=== PATIENT | female | born 1950 | race Caucasian/White ===

== ENCOUNTER 2016-09-26 19:29 | Inpatient (IN) | payer MEDICARE, BC ==
--- NOTE | 2016-09-26 19:41 | ER Document Report ---
ED Medical Screen (RME) - General Stated Complaint: BOIL ON RIGHT ARM Mode of Arrival: Wheelchair Information source: Patient Notes: pt presents to the ED with abscess on right inner thigh since Tuesday with low grade fever. Denies hx of MRSA. Reports pain. I have greeted and performed a rapid initial assessment of this patient. A comprehensive ED assessment and evaluation of the patient, analysis of test results and completion of the medical decision making process will be conducted by additional ED providers. - Related Data Allergies/Adverse Reactions: No Known Allergies Allergy (Unverified 05/03/12 10:05) Past Medical History - Past Medical History Cardiac Medical History: Reports: Hx Hypercholesterolemia, Hx Hypertension Pulmonary Medical History: Reports: Hx Pneumonia Endocrine Medical History: Reports: Hx Diabetes Mellitus Type 2 Past Surgical History: Reports: Hx Tonsillectomy - T&A - Immunizations Hx Diphtheria, Pertussis, Tetanus Vaccination: No Physical Exam - Vital signs Vitals: Temp Pulse Resp BP Pulse Ox 98.4 F 77 16 138/61 H 94 09/26/16 19:36 09/26/16 19:36 09/26/16 19:36 09/26/16 19:36 09/26/16 19:36 Course - Vital Signs Vital signs: Temp Pulse Resp BP Pulse Ox 98.4 F 77 16 138/61 H 94 09/26/16 19:36 09/26/16 19:36 09/26/16 19:36 09/26/16 19:36 09/26/16 19:36
[2016-09-26] MEDS ORDERED: LIDOCAINE 1% INJ-PF (10 MG/ML) 30 ML SDV ONE (20:56)
[2016-09-26] MEDS ORDERED: HYDROMORPHONE HCL INJ/PF 2 MG/ML AMPULE IM ONE (21:01)
[2016-09-26] MEDS ORDERED: ONDANSETRON 4 MG TAB.RAPDIS PO ONE (21:01)
[2016-09-26] MEDS ORDERED: PIPERACILLIN/TAZOBACTAM 4.5 GM VIAL IV ONE (21:09)
[2016-09-26] MEDS ORDERED: LIDOCAINE 1% INJ-PF (10 MG/ML) 30 ML SDV INJ ONE (21:11)
[2016-09-26] MEDS ORDERED: DIPH/PERTUSS(ACELL)/TETANUS VAC/PF 0.5 ML SYR (>=10YO) IM ONE (21:12)
--- NOTE | 2016-09-26 21:13 | ER Document Report ---
ED Skin Rash/Insect Bite/Abscs - General Chief Complaint: Abscess Stated Complaint: right leg pain Time seen by provider: 20:50 Mode of Arrival: Wheelchair Notes: Patient is a 65-year-old female that comes emergency department for chief complaint of a red and painful area on her right thigh that started out as a small red painful area but has grown to a large size over the past 5 days approximately. Patient states that for the past couple of days she has felt chills. Past medical history of morbid obesity, type II diabetes on oral medications, hypertension. Tetanus is not up-to-date within 5 years. TRAVEL OUTSIDE OF THE [place] IN LAST 30 DAYS: No - Related Data Allergies/Adverse Reactions: No Known Allergies Allergy (Unverified 05/03/12 10:05) Home Medications: Current Home Medications Albuterol Sulfate [Proair Respiclick] 2 puff IH ASDIR PRN 09/27/16 [History] Atenolol [Atenolol] 50 mg PO DAILY 09/27/16 [History] Atorvastatin Calcium 10 mg PO ASDIR PRN 09/27/16 [History] Bupropion HCl [Wellbutrin Xl 300mg 24hr Tablet] 1 tab PO DAILY 09/27/16 [History ] Citalopram Hydrobromide [Citalopram HBr] 20 mg PO DAILY 09/27/16 [History] Fenofibrate Nanocrystallized [Fenofibrate] 145 mg PO DAILY 09/27/16 [History] Furosemide [Furosemide] 1.5 tab PO QAM 09/27/16 [History] Lubiprostone [Amitiza 24 Mcg Capsule] 24 mcg PO BID 09/27/16 [History] Ramipril [Ramipril] 2 cap PO DAILY 09/27/16 [History] Sitagliptin Phosphate [Januvia] 50 mg PO DAILY 09/27/16 [History] Topiramate [Topiramate] 200 mg PO ASDIR PRN 09/27/16 [History] Past Medical History - General Information source: Patient - Social History Smoking Status: Current Every Day Smoker Chew tobacco use (# tins/day): No Drug Abuse: None Lives with: Family Family History: Reviewed & Not Pertinent Patient has suicidal ideation: No Patient has homicidal ideation: No - Past Medical History Cardiac Medical History: Reports: Hx Hypercholesterolemia, Hx Hypertension Pulmonary Medical History: Reports: Hx Pneumonia Endocrine Medical History: Reports: Hx Diabetes Mellitus Type 2 Renal/ Medical History: Denies: Hx Peritoneal Dialysis Past Surgical History: Reports: Hx Tonsillectomy - T&A - Immunizations Hx Diphtheria, Pertussis, Tetanus Vaccination: No Hx Pneumococcal Vaccination: 07/18/08 Review of Systems - Review of Systems Constitutional: No symptoms reported EENT: No symptoms reported Cardiovascular: No symptoms reported Respiratory: No symptoms reported Gastrointestinal: No symptoms reported Genitourinary: No symptoms reported Female Genitourinary: No symptoms reported Musculoskeletal: See HPI Skin: See HPI Hematologic/Lymphatic: No symptoms reported Neurological/Psychological: No symptoms reported Physical Exam - Vital signs Vitals: Temp Pulse Resp BP Pulse Ox 98.4 F 77 16 138/61 H 94 09/26/16 19:36 09/26/16 19:36 09/26/16 19:36 09/26/16 19:36 09/26/16 19:36 Interpretation: Normal - General General appearance: Appears well, Alert In distress: None - Patient is morbidly obese with very large lower extremities and thighs but she does not appear to be in any distress - HEENT Head: Normocephalic, Atraumatic Eyes: Normal Conjunctiva: Normal Extraocular movements intact: Yes Eyelashes: Normal Pupils: PERRL Sinus: Normal Nasal: Normal Mouth/Lips: Normal Mucous membranes: Normal Pharynx: Normal Neck: Normal - Respiratory Respiratory status: No respiratory distress Chest status: Nontender Breath sounds: Normal. No: Decreased air movement, Wheezing Chest palpation: Normal - Cardiovascular Rhythm: Regular. No: Tachycardia Heart sounds: Normal auscultation, S1 appreciated, S2 appreciated Murmur: No - Abdominal Inspection: Normal Distension: No distension Bowel sounds: Normal Tenderness: Nontender Organomegaly: No organomegaly - Back Back: Normal, Nontender - Extremities General upper extremity: Normal inspection, Nontender, Normal color, Normal ROM , Normal temperature General lower extremity: Other - Large 4 x 6 cm area of approximately that appears to be necrotic tissue over the proximal right medial thigh, there is surrounding erythema. - Neurological Neuro grossly intact: Yes Cognition: Normal Orientation: AAOx4 Jose Coma Scale Eye Opening: Spontaneous [place] Coma Scale Verbal: Oriented Jose Coma Scale Motor: Obeys Commands Jose Coma Scale Total: 15 Speech: Normal Motor strength normal: LUE, RUE, LLE, RLE Sensory: Normal - Psychological Associated symptoms: Normal affect, Normal mood - Skin Skin Temperature: Warm Skin Moisture: Dry Skin Color: Normal Course - Re-evaluation Re-evalutation: Necrotic tissue is surrounding cellulitis noted in a large area on the right mid thigh. There evaluated with a bedside ultrasound, no drainable abscess noted, just the superficial necrotic tissue with surrounding cellulitis. Spoke with Dr. Chaudhari, he evaluated the patient at bedside, he immediately performed a procedure where he made a widespread removal of the necrotic tissue and a large oval-shape, I irrigated the area with saline and placed wet-to-dry dressing as recommended by the surgeon. Labs obtained, wound culture sent, giving IV Zosyn, leukocytosis at 14.5 with elevation of neutrophils noted. Discussed with Dr. Horowitz, internal medicine, patient will be admitted to the hospital. - Vital Signs Vital signs: Temp Pulse Resp BP Pulse Ox 98.3 F 57 L 18 143/74 H 98 09/27/16 03:23 09/27/16 03:23 09/27/16 03:23 09/27/16 03:23 09/27/16 03:23 - Laboratory Result Diagrams: 09/26/16 21:45 09/26/16 22:40 Laboratory results interpreted by me: 09/26/16 09/26/16 21:45 22:40 WBC 14.2 H Hgb 10.7 L Hct 33.4 L RDW 14.2 H Seg Neutrophils % 83.5 H Lymphocytes % 7.6 L Absolute Neutrophils 11.8 H BUN 36 H Creatinine 1.45 H Est GFR ( Amer) 44 L Est GFR (Non-Af Amer) 36 L Discharge - Discharge Clinical Impression: Cellulitis of right leg Disposition: ADMITTED INPATIENT Admitting Provider: Hospitalist Unit Admitted: Telemetry
[2016-09-26 22:13] LABS: ABSOLUTE BASOPHILS # (AUTO) 0.1 10^3/uL (0.0-0.2); ABSOLUTE EOSINOPHILS # (AUTO) 0.2 10^3/uL (0.0-0.6); ABSOLUTE LYMPHOCYTES (AUTO) 1.1 10^3/uL (0.5-4.7); ABSOLUTE MONOCYTES (AUTO) 0.9 10^3/uL (0.1-1.4); ABSOLUTE NEUT (AUTO) 11.8 10^3/uL (1.7-8.2); BASOPHILS % (AUTO) 0.8 % (0-2); EOSINOPHILS % (AUTO) 1.7 % (0-6); HEMATOCRIT 33.4 % (36.0-47.0); HEMOGLOBIN 10.7 g/dL (12.0-15.5); HGB HCT DIFFERENCE -1.3; LYMPHOCYTES % (AUTO) 7.6 % (13-45); MEAN CORPUSCULAR HGB CONC 32.1 g/dL (32.0-36.0); MEAN CORPUSCULAR VOLUME 84 fl (80-97); MONOCYTES % (AUTO) 6.4 % (3-13); RED BLOOD COUNT 3.97 10^6/uL (3.72-5.28); RED CELL DISTRIBUTION WIDTH 14.2 % (11.5-14.0); SEGMENTED NEUTROPHILS % (AUTO) 83.5 % (42-78); WHITE BLOOD COUNT 14.2 10^3/uL (4.0-10.5)
[2016-09-26 23:13] LABS: ALANINE AMINOTRANSFERASE 32 U/L (9-52); ALBUMIN 3.7 g/dL (3.5-5.0); ALKALINE PHOSPHATASE 64 U/L (38-126); ANION GAP 14 (5-19); ASPARTATE AMINO TRANSFERASE 19 U/L (14-36); BILIRUBIN,TOTAL 0.5 mg/dL (0.2-1.3); BLOOD UREA NITROGEN 36 mg/dL (7-20); CARBON DIOXIDE 25 mmol/L (22-30); CHLORIDE 105 mmol/L (98-107); CREATININE RESULT 1.45 mg/dL (0.52-1.25); GLUCOSE 101 mg/dL (75-110); POTASSIUM 4.1 mmol/L (3.6-5.0); SODIUM 143.6 mmol/L (137-145); TOTAL PROTEIN 6.8 g/dL (6.3-8.2)
[2016-09-27] MEDS ORDERED: INSULIN LISPRO 100 UNIT/ML 3 ML VIAL SUBCUT PRN (01:27)
[2016-09-27] MEDS ORDERED: DEXTROSE 50%-WATER 25 GM/50 ML DISP.SYRIN IV PRN ×2 (01:27)
[2016-09-27] MEDS ORDERED: DEXTROSE 40% GEL 15 GM TUBE PO PRN ×2 (01:27)
[2016-09-27] MEDS ORDERED: GLUCAGON,HUMAN RECOMB 1 MG INJ IM PRN (01:27)
[2016-09-27] MEDS ORDERED: ACETAMINOPHEN 325 MG TABLET PO PRN (01:41)
[2016-09-27] MEDS ORDERED: OXYCODONE HCL IR 5 MG TABLET PO PRN (01:52)
[2016-09-27] MEDS ORDERED: VANCOMYCIN HCL 0 MG in DEXTROSE 5%-WATER 250 ML IV NR (02:00)
[2016-09-27] MEDS ORDERED: PHARMACY COMMUNICATION ORDER MC SCH (02:00)
[2016-09-27] MEDS ORDERED: NICOTINE 7 MG/24 HR PATCH.TD24 TD PRN (02:13)
--- NOTE | 2016-09-27 02:15 | PDOC H&P ---
History of Present Illness Admission Date/PCP: 09/27/16 00:47 LUCERO BURT MD Patient complains of: rt thigh infection History of Present Illness: JUSTINE DU is a 65 year old morbidly obese female with underlying type II diabetes mellitus, anemia, chronic kidney disease, chronic nicotine dependency, arthritis, depression, hypertension, and hyperlipidemia, who presents to the emergency room for evaluation of a painful inflamed area on her upper medial right thigh present for approximately 5 days. Combination throbbing and sharp pain which worsens with ambulation or contact with the area. Started out as a red bump. 2 day history of shaking chills. No prior such episodes. No known trauma to the site. No history of MRSA infection. Has undergone incision and drainage by the surgeon in the emergency room. Patient has been discussed with emergency room physician who evaluated the patient. . Laboratory results are listed in [facility] and are reviewed. Social history/personal habits: . Lives alone. Close family follow-up. Unemployed. Currently uses a vaping device. No alcohol or illicit drug use. Allergies/adverse reactions NKDA. Home medications are reviewed from a hand written list provided by [facility], who is present at patient's side with her approval and are to be reconciled by nursing staff in [facility]. Home medications initially autopopulated into [facility] may not accurately reflect patient's true medications, dosages, and/or frequencies. REVIEW OF SYSTEMS: Constitutional: See history and present illness. Eyes: Wears glasses. ENT: No swallowing problems or complaints. No hearing problems or complaints. Pulmonary: No current complaints. Cardiovascular: No current complaints, including chest pain. Gastrointestinal: No current complaints, including nausea or vomiting. Skin: See history and present illness. Hematologic: Easy bruising. Neurologic: No current complaints, including numbness or tingling. Musculoskeletal: Joint pain from arthritis. Psychiatric: depression; denies suicidal or homicidal ideation. Endocrine: No current complaints, including polyuria. Genitourinary: No current complaints, including dysuria. PHYSICAL EXAMINATION: 5 feet 6 inches tall. 151.95 kg. BMI 54.1 kg/m.Temperature 98.4. Pulse 77 and regular. Blood pressure 138/61. Respirations are 16 and unlabored. 94% saturation on room air. Morbidly obese otherwise well-developed female appearing approximately her stated age. Pleasant awake alert and cooperative. No obvious distress other than perhaps mildly anxious. Female emergency room nurse Augusta is present. Daughter is present; patient approves. Skin is warm and dry. No grossly obvious evidence of rash in areas of skin examined. No subcutaneous nodules palpated. Clean dry and intact gauze dressing is present on her upper right medial thigh, with some evidence of inflammation in the skin surrounding the dressing. Dressing is left in place. ENT: Hearing grossly normal to normal conversation. Tongue midline on protrusion pink and slightly moist. Eyes: No scleral icterus. Pupils equal and reactive to light at 4 mm. [place] conjunctivae. Neck is supple and nontender to gentle active range of motion and palpation. Midline trachea. No palpable thyroid nodule mass enlargement or tenderness. Lymphatic: No palpable cervical or clavicular nodes. Neck and lymphatic exams limited by patient body habitus. Psychiatric: Reasonable insight into acute and chronic medical issues. Oriented to time location and why here. Lungs: Auscultation reveals clear and equal breath sounds bilaterally. No use of accessory respiratory muscles. Cardiovascular: Heart slightly irregular rate and rhythm, without gallop murmur or rub. No carotid or abdominal aortic bruits. No ankle or pedal edema. Faintly palpable dorsalis pedis pulses. Patient states Dr. Burt is aware of her slightly irregular heartbeat. No history of atrial fibrillation or flutter. Abdomen: soft, obese, nontender with positive bowel sounds. Unable to adequately evaluate abdomen for masses or organomegaly due to body habitus. Extremities: Feet are warm and dry. No calf tenderness to compression. No grossly obvious visual evidence of calf swelling. Gentle manipulation of lower extremities fails to reveal any obvious evidence of injury or instability to knees hips or ankles. Neurologic: Moves upper extremities grossly normally. Patellar reflexes absent. Absent Babinski. Light touch decreased at feet, a chronic finding, according to patient, without recent change.. Dorsiflexion and plantarflexion of feet 5 / 5 and symmetric. Past Medical History Cardiac Medical History: Reports: Hyperlipidema, Hypertension Denies: Congestive Heart Failure, DVT, Myocardial Infarction, Pulmonary Embolism Pulmonary Medical History: Reports: Pneumonia Denies: Asthma, Chronic Obstructive Pulmonary Disease (COPD) EENT Medical History: Reports: Eyes - Glasses Denies: Ears, Throat Neurological Medical History: Denies: Hemorrhagic CVA, Ischemic CVA, Seizures Endocrine Medical History: Reports: Diabetes Mellitus Type 2 Denies: Diabetes Mellitus Type 1, Hyperthyroidism, Hypothyroidism Renal/ Medical History: Reports: Chronic Kidney Disease GI Medical History: Denies: Cirrhosis, Gastroesophageal Reflux Disease, Hepatitis, Peptic Ulcer Disease Skin Medical History: Reports: None Psychiatric Medical History: Reports: Depression, Other - Nicotine dependency Denies: Alcohol Dependency, Substance Abuse Hematology: Reports: Anemia Infectious Medical History: Denies: Clostridium Difficile, Hepatitis B, Hepatitis C, Methicillin- Resistant Staph Aureus Past Surgical History Past Surgical History: Reports: Tonsillectomy - T&A Social History Information Source: Patient, Emergency Med Personnel, [facility] Lives with: Alone Smoking Status: Current Every Day Smoker Frequency of Alcohol Use: None Drugs: None - Advance Directive Resuscitation Status: Full Code Surrogate healthcare decision maker:: Children Family History Parental Family History Reviewed: Yes Children Family History Reviewed: Yes Sibling(s) Family History Reviewed.: Yes Medication/Allergy Home Medications: Aspirin [Aspirin 81 mg Chewable Tablet] 81 mg PO DAILY 09/27/16 Atenolol [Tenormin 50 mg Tablet] 50 mg PO DAILY 09/27/16 Atorvastatin Calcium [Lipitor 10 mg Tablet] 10 mg PO DAILY 09/27/16 Bupropion HCl [Wellbutrin Xl 300mg 24hr Tablet] 1 tab PO DAILY 09/27/16 Calcium Carbonate/Vitamin D3 [Calcium 600-Vit D3 800 Tablet] 1 each PO DAILY Citalopram Hydrobromide [Celexa 20 mg Tablet] 10 mg PO DAILY 09/27/16 Fenofibrate Nanocrystallized [Tricor 145 mg Tablet] 145 mg PO DAILY 09/27/16 Furosemide [Lasix] 30 mg PO QAM 09/27/16 Glucosamine Sulfate 2Kcl [Glucosamine Sulfate] 2,000 mg PO BID 09/27/16 Krill/Om-3/Dha/Epa/Phospho/Ast [Krill Oil 500 mg Softgel] 1 each PO BID Lubiprostone [Amitiza 24 Mcg Capsule] 24 mcg PO BID 09/27/16 Multivitamin [Tab-A-Del] 1 each PO DAILY 09/27/16 Ramipril [Altace 10 mg Capsule] 20 mg PO DAILY 09/27/16 Sitagliptin Phosphate [Januvia 50 mg Tablet] 50 mg PO DAILY 09/27/16 Topiramate [Topamax] 200 mg PO QHS 09/27/16 Vit A/C/E AC/Znox/Cupric Oxide [Eye Vitamin-Minerals Tablet] 1 each PO BID 09/27 Clindamycin HCl [Cleocin HCl] 300 mg PO QID #40 capsule 10/02/16 RX: Cefuroxime Axetil [Ceftin 250 mg Tablet] 250 mg PO Q12 #10 tablet 10/02/16 Allergies/Adverse Reactions: No Known Allergies Allergy (Unverified 05/03/12 10:05) Physical Exam Vital Signs: Temp Pulse Resp BP Pulse Ox 98.4 F 77 16 138/61 H 94 09/26/16 19:36 09/26/16 19:36 09/26/16 19:36 09/26/16 19:36 09/26/16 19:36 Assessment & Plan - Diagnosis (1) Abscess of right thigh Is this a current diagnosis for this admission?: YesPlan: Surgery consult for wound follow-up. Intravenous vancomycin, along with Zosyn. Contact precautions. MRSA screen. I have strongly encouraged patient not to get out of bed without notifying staff , to avoid a fall with injury. Knee high SCDs for DVT prophylaxis, along with subcutaneous heparin. Impression and plans were discussed with patient, and daughter, both of whom concur. Time spent in evaluation and management of patient: 64 minutes. (2) Status post incision and drainage Is this a current diagnosis for this admission?: Yes (3) Anemia Qualifiers: Anemia type: unspecified type Qualified Code(s): D64.9 - Anemia, unspecified Is this a current diagnosis for this admission?: YesPlan: Follow-up CBC with differential. No need for transfusion at present time. (4) CKD (chronic kidney disease), stage III Is this a current diagnosis for this admission?: Yes (5) Diabetes mellitus type 2 in obese Is this a current diagnosis for this admission?: YesPlan: Diabetic cardiac prerenal diet. Accu-Cheks with appropriate sliding scale coverage.Resume home medications as appropriate once these have been reviewed. (6) HLD (hyperlipidemia) Qualifiers: Hyperlipidemia type: unspecified Qualified Code(s): E78.5 - Hyperlipidemia, unspecified Is this a current diagnosis for this admission?: YesPlan: Resume home medications as appropriate once these have been reviewed. (7) HTN (hypertension) Qualifiers: Hypertension type: essential hypertension Qualified Code(s): I10 - Essential (primary) hypertension Is this a current diagnosis for this admission?: YesPlan: Resume home medications as appropriate once these have been reviewed. (8) Nicotine dependence Qualifiers: Nicotine product type: other Is this a current diagnosis for this admission?: YesPlan: When necessary nicotine patch. - Inpatient Certification Based on my medical assessment, after consideration of the patient's comorbidities, presenting symptoms, or acuity I expect that the services needed warrant INPATIENT care.: Yes I certify that my determination is in accordance with my understanding of Medicare's requirements for reasonable and necessary INPATIENT services [42 CFR 412.3e].: Yes Medical Necessity: Need Close Monitoring Due to Risk of Patient Decompensation, Need for IV Antibiotics, Risk of Complication if Not Cared For in Hospital Post Hospital Care: D/C or Transfer Summary
[2016-09-27 03:35] LABS: APPEARANCE,URINE CLOUDY; BILIRUBIN,URINE NEGATIVE (NEGATIVE); GLUCOSE, URINE NEGATIVE (NEGATIVE); KETONES,URINE NEGATIVE (NEGATIVE); LEUKOCYTE ESTERASE,URINE LARGE (NEGATIVE); NITRITE,URINE POSITIVE (NEGATIVE); PROTEIN,URINE NEGATIVE (NEGATIVE); URINE SPECIFIC GRAVITY 1.014; UROBILINOGEN,URINE NEGATIVE mg/dL (<2.0)
[2016-09-27] MEDS ORDERED: PIPERACILLIN/TAZOBACTAM 4.5 GM VIAL IV PRN (03:44)
--- NOTE | 2016-09-27 04:43 | OPERATIVE REPORT E ---
Operative Report NAME: JUSTINE DU : 1950 AGE: 65Y DATE OF SURGERY: ROOM: 425 PREOPERATIVE DIAGNOSIS: The patient consultation from the ER physician for evaluation and management of right thigh abscess and necrotic soft tissue infection. The patient is a morbidly obese diabetic patient with hypertension, hypercholesterolemia presented to emergency room with history of pain in the right thigh area increasing severity for the past five days. The patient does not recollect any history of spider bite or insect bite and came to emergency room. Upon evaluation, she has large erythema along with necrotic soft tissue infection and needed a drain in the buttock. OPERATION: Incision and drainage of the abscess of the right upper thigh along with excisional debridement of the soft tissue narcotic infection up to the deep fascial level. SURGEON: ELISA AGUIRRE M.D. PROCEDURE: Procedure was done on the bedside with 1% lidocaine. After explaining to the patient of the procedure details, the patient was placed on the supine position. The right thigh area cleaned and draped as sterile field. 1% lidocaine injected for analgesia. There was about 4 cm necrotic soft tissue in the right thigh medial aspect. About 3 cm incision was made. All the necrotic soft tissue debrided up to the facial level. Underlying thicker pus was drained out, sent for cultures. All the necrotic soft tissues were debrided up to the healthy margins. Wound was irrigated. Dressings were applied. The patient tolerated the procedure very well. DICTATING PHYSICIAN: ELISA AGUIRRE M.D. [id number] PHY#: [id number] ID: [id number] JOB#: [id number] ACCT: [id number] cc:ELISA AGUIRRE M.D. > [facility]ITALRich
[2016-09-27] MEDS ORDERED: INFLUENZA ADLT QUAD (36MOS+) 2016-17 VAC 0.5 ML SYR IM PRN (04:50)
[2016-09-27] MEDS ORDERED: VANCOMYCIN HCL INJ 1000 MG VIAL IV PRN (05:00)
[2016-09-27] MEDS ORDERED: VANCOMYCIN HCL 2,000 MG in DEXTROSE 5%-WATER 500 ML IV ONE (05:00)
[2016-09-27] MEDS ORDERED: VANCOMYCIN HCL INJ 1000 MG VIAL ONE (05:37)
[2016-09-27] MEDS ORDERED: HEPARIN SOD (PORCINE) 5,000 UNIT/ML 1 ML SYRINGE SUBCUT SCH (06:00)
[2016-09-27] MEDS ORDERED: PIPERACILLIN SODIUM/TAZOBACTAM 4.5 GM in NORMAL SALINE 100 ML IV SCH (06:00)
[2016-09-27 07:40] LABS: ABSOLUTE BASOPHILS # (AUTO) 0.1 10^3/uL (0.0-0.2); ABSOLUTE EOSINOPHILS # (AUTO) 0.2 10^3/uL (0.0-0.6); ABSOLUTE MONOCYTES (AUTO) 0.9 10^3/uL (0.1-1.4); BASOPHILS % (AUTO) 0.8 % (0-2); EOSINOPHILS % (AUTO) 1.8 % (0-6); HEMOGLOBIN 10.4 g/dL (12.0-15.5); HGB HCT DIFFERENCE -0.8; LYMPHOCYTES % (AUTO) 7.2 % (13-45); MEAN CORPUSCULAR HEMOGLOBIN 27.3 pg (27.0-33.4); MEAN CORPUSCULAR HGB CONC 32.4 g/dL (32.0-36.0); MEAN CORPUSCULAR VOLUME 85 fl (80-97); MONOCYTES % (AUTO) 7.2 % (3-13); RED BLOOD COUNT 3.79 10^6/uL (3.72-5.28); RED CELL DISTRIBUTION WIDTH 14.1 % (11.5-14.0); WHITE BLOOD COUNT 13.2 10^3/uL (4.0-10.5)
[2016-09-27 08:02] LABS: ANION GAP 11 (5-19); BLOOD UREA NITROGEN 37 mg/dL (7-20); CALCIUM 9.7 mg/dL (8.4-10.2); CARBON DIOXIDE 25 mmol/L (22-30); CHLORIDE 107 mmol/L (98-107); CREATININE RESULT 1.59 mg/dL (0.52-1.25); GLUCOSE 96 mg/dL (75-110); POTASSIUM 4.5 mmol/L (3.6-5.0); SODIUM 143.4 mmol/L (137-145)
[2016-09-27] MEDS: PIPERACILLIN SODIUM/TAZOBACTAM 4.5 GM in NORMAL SALINE 100 ML IV SCH ×3 (09:20→21:08)
[2016-09-27] MEDS: DOCUSATE SODIUM 100 MG CAPSULE PO SCH ×2 (09:20→17:26)
[2016-09-27] MEDS ORDERED: VANCOMYCIN HCL 2,000 MG in DEXTROSE 5%-WATER 500 ML IV SCH (10:00)
[2016-09-27] MEDS ORDERED: DOCUSATE SODIUM 100 MG/10 ML UDC PO SCH (10:00)
--- NOTE | 2016-09-27 11:45 | PDOC PROGRESS REPORT ---
Subjective Progress Note for:: 09/27/16 Subjective:: The patient is having some pain. Minimal drainage. Physical Exam Vital Signs: Temp Pulse Resp BP Pulse Ox 98.3 F 56 L 18 143/74 H 98 09/27/16 03:23 09/27/16 07:00 09/27/16 03:23 09/27/16 03:23 09/27/16 03:23 Intake & Output 09/26/16 09/27/16 09/28/16 06:59 06:59 06:59 Intake Total 150 Balance 150 General appearance: PRESENT: mild distress Musculoskeletal exam: PRESENT: other - Right thighs exposed. There is a perimeter cellulitic changes and edema. I've pried open the incision. Old blood was evacuated. The wound is primarily into the subcutaneous space. Results Laboratory Results: 09/27/16 06:25 09/27/16 06:25 09/27/16 09/27/16 09/27/16 02:55 06:25 06:25 WBC 13.2 H RBC 3.79 Hgb 10.4 L Hct 32.0 L MCV 85 MCH 27.3 MCHC 32.4 RDW 14.1 H Plt Count 296 Seg Neutrophils % 83.0 H Lymphocytes % 7.2 L Monocytes % 7.2 Eosinophils % 1.8 Basophils % 0.8 Absolute Neutrophils 11.0 H Absolute Lymphocytes 1.0 Absolute Monocytes 0.9 Absolute Eosinophils 0.2 Absolute Basophils 0.1 Sodium 143.4 Potassium 4.5 Chloride 107 Carbon Dioxide 25 Anion Gap 11 BUN 37 H Creatinine 1.59 H Est GFR ( Amer) 39 L Est GFR (Non-Af Amer) 32 L Glucose 96 Calcium 9.7 Urine Color YELLOW Urine Appearance CLOUDY Urine pH 5.0 Ur Specific [place] 1.014 Urine Protein NEGATIVE Urine Glucose (UA) NEGATIVE Urine Ketones NEGATIVE Urine Blood NEGATIVE Urine Nitrite POSITIVE H Ur Leukocyte Esterase LARGE H Urine WBC (Auto) 73 Urine RBC (Auto) 5 Assessment & Plan - Diagnosis (1) Abscess of right thigh Is this a current diagnosis for this admission?: YesPlan: 1. We'll get patient up into the shower with scrub brush; order written. 2. We'll continue dressing changes on a daily basis. 3. We will follow cultures and adjust her antibiotics accordingly. - Time Time Spent with patient: Less than 15 minutes
[2016-09-27] MEDS ORDERED: CITALOPRAM HYDROBROMIDE 20 MG TABLET PO ONE (12:00)
[2016-09-27] MEDS ORDERED: FENOFIBRATE NANOCRYSTALLIZED 145 MG TABLET PO ONE (12:00)
[2016-09-27] MEDS ORDERED: ATORVASTATIN CALCIUM 10 MG TABLET PO ONE (12:00)
[2016-09-27] MEDS ORDERED: SITAGLIPTIN PHOSPHATE 50 MG TABLET PO ONE (12:00)
--- NOTE | 2016-09-27 12:56 | PDOC PROGRESS REPORT ---
Subjective Progress Note for:: 09/27/16 Subjective:: Reason for visit: Follow-up inner thigh abscess Hospital course: Per H&P "JUSTINE DU is a 65 year old morbidly obese female with underlying type II diabetes mellitus, anemia, chronic kidney disease, chronic nicotine dependency, arthritis, depression, hypertension , and hyperlipidemia, who presents to the emergency room for evaluation of a painful inflamed area on her upper medial right thigh present for approximately 5 days. Combination throbbing and sharp pain which worsens with ambulation or contact with the area. Started out as a red bump. 2 day history of shaking chills. No prior such episodes. No known trauma to the site. No history of MRSA infection. Has undergone incision and drainage by the surgeon in the emergency room." She was admitted to the hospital and started on broad-spectrum antibiotics including Zosyn and vancomycin. Gen. surgery was consulted and reopened the wound again this morning at the bedside. Subjective: Patient continues to complain of sharp stabbing pain from the wound particularly after the general surgeon's visit, nonradiating in nature, worse with palpation, but with pain medicine, and no associated symptoms. She denies chest pain, palpitations, fever, chills, nausea, vomiting, diarrhea. ROS: per HPI plus a total of 10 systems reviewed, pertinent positives and negatives noted above, remaining systems negative. Physical Exam Vital Signs: Temp Pulse Resp BP Pulse Ox 98.3 F 56 L 18 143/74 H 98 09/27/16 03:23 09/27/16 07:00 09/27/16 03:23 09/27/16 03:23 09/27/16 03:23 Intake & Output 09/26/16 09/27/16 09/28/16 06:59 06:59 06:59 Intake Total 150 Balance 150 EXAM GENERAL: NAD; well developed, well nourished; morbidly obese; alert and oriented to person, place, time, situation and in a foul mood HEENT: normocephalic, atraumatic; no conjunctival injection, no scleral icterus ; oral mucosa moist; RESPIRATORY: no accessory muscle use, no increased WOB, good air entry bilaterally; no wheezes, CARDIO: no JVD; RRR; bradycardia GI: soft; nondistended; large pannus VASCULAR: no pallor; 2+ radial, 1+ DP pulse; normal capillary refill; chronic acrocyanotic changes to the skin of the BLEs with thickeneded EXTREMITIES: no calf tender; no palpable cords in calf PSYCH: normal affect, disagreeable mood SKIN: warm; dry; no petechiae; no telengectasias; no jaundice; Rt inner thigh "orange"-sized abscess palpable with open incision actively oozing blood and foul smelling pus saturating the packing, bandage and surrounding bed clothes with surrounding erythema, hot to the touch and very tender to the touch, no lymphangitic streaking. couldn't appreciate inguinal adenopathy but her massive pannus makes it difficult Results Laboratory Results: 09/27/16 06:25 09/27/16 06:25 09/27/16 09/27/16 09/27/16 02:55 06:25 06:25 WBC 13.2 H RBC 3.79 Hgb 10.4 L Hct 32.0 L MCV 85 MCH 27.3 MCHC 32.4 RDW 14.1 H Plt Count 296 Seg Neutrophils % 83.0 H Lymphocytes % 7.2 L Monocytes % 7.2 Eosinophils % 1.8 Basophils % 0.8 Absolute Neutrophils 11.0 H Absolute Lymphocytes 1.0 Absolute Monocytes 0.9 Absolute Eosinophils 0.2 Absolute Basophils 0.1 Sodium 143.4 Potassium 4.5 Chloride 107 Carbon Dioxide 25 Anion Gap 11 BUN 37 H Creatinine 1.59 H Est GFR ( Amer) 39 L Est GFR (Non-Af Amer) 32 L Glucose 96 Calcium 9.7 Urine Color YELLOW Urine Appearance CLOUDY Urine pH 5.0 Ur Specific Irwin 1.014 Urine Protein NEGATIVE Urine Glucose (UA) NEGATIVE Urine Ketones NEGATIVE Urine Blood NEGATIVE Urine Nitrite POSITIVE H Ur Leukocyte Esterase LARGE H Urine WBC (Auto) 73 Urine RBC (Auto) 5 Assessment & Plan - Diagnosis (1) Abscess of right thigh Is this a current diagnosis for this admission?: YesPlan: s/p I&D x2; continue IV abx and await cultures sent from ED to narrow abx. (2) Cellulitis of right leg Is this a current diagnosis for this admission?: YesPlan: as above (3) UTI (urinary tract infection) Qualifiers: Urinary tract infection type: acute cystitis Hematuria presence: without hematuria Qualified Code(s): N30.00 - Acute cystitis without hematuria Is this a current diagnosis for this admission?: YesPlan: urine culture pending. continue IV abx and narrow spectrum based on those results (4) Anemia Qualifiers: Anemia type: unspecified type Qualified Code(s): D64.9 - Anemia, unspecified Is this a current diagnosis for this admission?: YesPlan: probably of chronic disease, send iron studies to better characterize and monitor h/h. (5) CKD (chronic kidney disease), stage III Is this a current diagnosis for this admission?: YesPlan: pharm to renal dose abx; avoid other nephrotoxic meds and hold her diuretic and ACEi for now. (6) Diabetes mellitus type 2 in obese Is this a current diagnosis for this admission?: YesPlan: she wants to resume her Januvia; will continue SSI for coverage as well. ck A1c , she reports always <7.5 (7) HLD (hyperlipidemia) Qualifiers: Hyperlipidemia type: unspecified Qualified Code(s): E78.5 - Hyperlipidemia, unspecified Is this a current diagnosis for this admission?: Yes (8) HTN (hypertension) Qualifiers: Hypertension type: essential hypertension Qualified Code(s): I10 - Essential (primary) hypertension Is this a current diagnosis for this admission?: YesPlan: adjust home regimen as needed. (9) Morbid obesity with BMI of 50.0-59.9, adult Is this a current diagnosis for this admission?: YesPlan: she is no mood to discuss weight loss with me. - Time Time Spent with patient: 25-34 minutes Medications reviewed and adjusted accordingly: Yes Anticipated discharge: Home with Homehealth - for wound care Within: within 48 hours
[2016-09-27] MEDS: BUPROPION HCL 100 MG TABLET PO SCH ×2 (14:08→21:08)
[2016-09-27] MEDS: OMEGA-3 ACID ETHYL ESTERS 1 GM CAPSULE PO SCH (17:26)
[2016-09-27] MEDS: LUBIPROSTONE 24 MCG CAPSULE PO SCH (17:26)
[2016-09-27] MEDS ORDERED: VIT A PO SCH (18:00)
[2016-09-27] MEDS ORDERED: PHOSPHO PO SCH (18:00)
[2016-09-27] MEDS ORDERED: [UNRECOGNIZED DRUG - OTHER] PO SCH (18:00)
[2016-09-27] MEDS ORDERED: GLUCOSAMINE SULFATE 2000 MG PO SCH (18:00)
[2016-09-27] MEDS ORDERED: [UNRECOGNIZED DRUG - OTHER] PO SCH (18:00)
[2016-09-27] MEDS ORDERED: AST PO SCH (18:00)
[2016-09-27] MEDS ORDERED: DHA PO SCH (18:00)
[2016-09-27] MEDS ORDERED: CUPRIC OXIDE PO SCH (18:00)
[2016-09-27] MEDS ORDERED: ZNOX PO SCH (18:00)
[2016-09-27] MEDS ORDERED: EPA PO SCH (18:00)
[2016-09-27] MEDS ORDERED: KRILL PO SCH (18:00)
[2016-09-27] MEDS ORDERED: E AC PO SCH (18:00)
[2016-09-27] MEDS: TOPIRAMATE 100 MG TABLET PO SCH (21:08)
[2016-09-27] MEDS ORDERED: (PENDING PHARMACY ID) (Topiramate [Topamax] 200 MG) PO SCH (22:00)
[2016-09-28] MEDS: PIPERACILLIN SODIUM/TAZOBACTAM 4.5 GM in NORMAL SALINE 100 ML IV SCH ×4 (03:18→22:01)
[2016-09-28 05:32] LABS: ABSOLUTE BASOPHILS # (AUTO) 0.1 10^3/uL (0.0-0.2); ABSOLUTE EOSINOPHILS # (AUTO) 0.3 10^3/uL (0.0-0.6); ABSOLUTE LYMPHOCYTES (AUTO) 1.3 10^3/uL (0.5-4.7); ABSOLUTE MONOCYTES (AUTO) 0.8 10^3/uL (0.1-1.4); ABSOLUTE NEUT (AUTO) 8.2 10^3/uL (1.7-8.2); BASOPHILS % (AUTO) 0.9 % (0-2); EOSINOPHILS % (AUTO) 2.4 % (0-6); HEMATOCRIT 29.2 % (36.0-47.0); HEMOGLOBIN 9.4 g/dL (12.0-15.5); LYMPHOCYTES % (AUTO) 11.8 % (13-45); MEAN CORPUSCULAR HEMOGLOBIN 27.3 pg (27.0-33.4); MEAN CORPUSCULAR HGB CONC 32.4 g/dL (32.0-36.0); MEAN CORPUSCULAR VOLUME 84 fl (80-97); MONOCYTES % (AUTO) 7.9 % (3-13); RED BLOOD COUNT 3.46 10^6/uL (3.72-5.28); RED CELL DISTRIBUTION WIDTH 14.2 % (11.5-14.0); WHITE BLOOD COUNT 10.7 10^3/uL (4.0-10.5)
[2016-09-28] MEDS: VANCOMYCIN HCL 2,000 MG in DEXTROSE 5%-WATER 500 ML IV SCH (05:39)
[2016-09-28] MEDS: BUPROPION HCL 100 MG TABLET PO SCH ×3 (05:39→22:02)
[2016-09-28 05:45] LABS: ANION GAP 10 (5-19); BLOOD UREA NITROGEN 34 mg/dL (7-20); CALCIUM 9.4 mg/dL (8.4-10.2); CARBON DIOXIDE 25 mmol/L (22-30); CHLORIDE 109 mmol/L (98-107); GLUCOSE 104 mg/dL (75-110); POTASSIUM 3.9 mmol/L (3.6-5.0); SODIUM 143.6 mmol/L (137-145)
[2016-09-28] MEDS: CALCIUM CARBONATE 250 MG/VITAMIN D3 125 UNIT TABLET PO SCH (07:52)
[2016-09-28] MEDS: OMEGA-3 ACID ETHYL ESTERS 1 GM CAPSULE PO SCH ×2 (07:53→17:23)
[2016-09-28] MEDS ORDERED: ATENOLOL 50 MG TABLET PO SCH ×2 (10:00→20:00)
[2016-09-28] MEDS ORDERED: CALCIUM CARBONATE PO SCH (10:00)
[2016-09-28] MEDS ORDERED: [UNRECOGNIZED DRUG - OTHER] PO SCH (10:00)
[2016-09-28] MEDS ORDERED: VITAMIN D3 PO SCH (10:00)
[2016-09-28] MEDS: DOCUSATE SODIUM 100 MG CAPSULE PO SCH ×2 (10:04→17:24)
[2016-09-28] MEDS: MULTIVITAMIN TABLET PO SCH (10:05)
[2016-09-28] MEDS: CITALOPRAM HYDROBROMIDE 20 MG TABLET PO SCH (10:05)
[2016-09-28] MEDS: ATORVASTATIN CALCIUM 10 MG TABLET PO SCH (10:05)
[2016-09-28] MEDS: LUBIPROSTONE 24 MCG CAPSULE PO SCH ×2 (10:05→17:23)
[2016-09-28] MEDS: SITAGLIPTIN PHOSPHATE 50 MG TABLET PO SCH (10:06)
[2016-09-28] MEDS: FENOFIBRATE NANOCRYSTALLIZED 145 MG TABLET PO SCH (10:06)
[2016-09-28] MEDS ORDERED: NORMAL SALINE 10 ML SDV (AFTER EACH USE) IV PRN (16:02)
--- NOTE | 2016-09-28 17:53 | PDOC PROGRESS REPORT ---
Subjective Progress Note for:: 09/28/16 Subjective:: Patient is feeling better She has no fever no chills no shortness of breath She is ambulating with a cane Physical Exam Vital Signs: Temp Pulse Resp BP Pulse Ox 98.5 F 64 14 159/95 H 100 09/28/16 11:27 09/28/16 14:00 09/28/16 12:00 09/28/16 11:27 09/28/16 11:27 Intake & Output 09/27/16 09/28/16 09/29/16 00:59 00:59 00:59 Intake Total 19240 Balance 1924 1709 Weight 155.6 kg General appearance: PRESENT: no acute distress, morbidly obese Head exam: PRESENT: atraumatic, normocephalic Eye exam: PRESENT: conjunctiva pink, EOMI, PERRLA. ABSENT: scleral icterus Neck exam: ABSENT: carotid bruit, JVD, lymphadenopathy, thyromegaly Respiratory exam: PRESENT: clear to auscultation [place]. ABSENT: rales, rhonchi, wheezes Cardiovascular exam: PRESENT: RRR. ABSENT: diastolic murmur, rubs, systolic murmur GI/Abdominal exam: PRESENT: normal bowel sounds, soft. ABSENT: distended, guarding, mass, organolmegaly, rebound, tenderness Extremities exam: PRESENT: other - Right thigh Redness remains medial aspect upper thigh No drainage no lymphangitic streak Neurological exam: PRESENT: alert, awake, oriented to person, oriented to place , oriented to time, oriented to situation, CN II-XII grossly intact. ABSENT: motor sensory deficit Psychiatric exam: PRESENT: appropriate affect, normal mood. ABSENT: homicidal ideation, suicidal ideation Results Laboratory Results: 09/28/16 05:03 09/28/16 05:03 09/28/16 09/28/16 05:03 05:03 WBC 10.7 H RBC 3.46 L Hgb 9.4 L Hct 29.2 L MCV 84 MCH 27.3 MCHC 32.4 RDW 14.2 H Plt Count 313 Seg Neutrophils % 77.0 Lymphocytes % 11.8 L Monocytes % 7.9 Eosinophils % 2.4 Basophils % 0.9 Absolute Neutrophils 8.2 Absolute Lymphocytes 1.3 Absolute Monocytes 0.8 Absolute Eosinophils 0.3 Absolute Basophils 0.1 Retic Count (auto) 1.07 Absolute Retic 0.037 Sodium 143.6 Potassium 3.9 Chloride 109 H Carbon Dioxide 25 Anion Gap 10 BUN 34 H Creatinine 1.50 H Est GFR ( Amer) 42 L Est GFR (Non-Af Amer) 35 L Glucose 104 Calcium 9.4 Iron 35.8 L TIBC 279 % Saturation 13 Ferritin 78.70 Vitamin B12 > 1000.0 H Folate 13.10 09/27/16 02:55 Nasophary (Mrsa Only) MRSA Surveillance Culture - Final MRSA RECOVERED 09/27/16 02:55 Urine Culture - Preliminary Clean Catch Midstream Gram Negative Rods 09/26/16 00:13 Gram Stain - Preliminary Leg - Spider Bite Wound Culture - Preliminary Gram Positive Cocci Clusters Impressions: Guidance Fluoroscopy 09/28/16 00:00 IMPRESSION: SUCCESSFUL PLACEMENT OF A 5 FR DUAL LUMEN 47 CM PICC IN THE left basilic VEIN. Interventional Vascular Procedure 09/28/16 00:00 IMPRESSION: SUCCESSFUL PLACEMENT OF A 5 FR DUAL LUMEN 47 CM PICC IN THE left basilic VEIN. PICC Line Insertion 09/28/16 00:00 IMPRESSION: SUCCESSFUL PLACEMENT OF A 5 FR DUAL LUMEN 47 CM PICC IN THE left basilic VEIN. Assessment & Plan - Diagnosis (1) Abscess of right thigh Is this a current diagnosis for this admission?: Yes (2) UTI (urinary tract infection) Qualifiers: Urinary tract infection type: acute cystitis Hematuria presence: without hematuria Qualified Code(s): N30.00 - Acute cystitis without hematuria Is this a current diagnosis for this admission?: Yes (3) Diabetes mellitus type 2 in obese Is this a current diagnosis for this admission?: Yes (4) Morbid obesity with BMI of 50.0-59.9, adult Is this a current diagnosis for this admission?: Yes - Time Time Spent with patient: Continue present management Awaiting identification and sensitivity bacteria Time Spent with patient: 15-24 minutes
--- NOTE | 2016-09-28 18:13 | PROGRESS NOTE E ---
Progress Note NAME: JUSTINE DU : 1950 AGE: 65Y DATE: 09/28/2016 ROOM: 425 SUBJECTIVE: Patient presented to the hospital with right medial thigh swelling and pain. She was found to have an infection, undergoing incision, drainage and debridement in the emergency room under a local anesthesia 2 days ago. Cultures had gram-positive cocci with final pending. DIRECTIVE: Patient is having discomfort in the medial aspect of the right thigh where she had the incision and drainage. OBJECTIVE: Patient still has erythema around the medial right thigh but according to the family this is improving. The wound was probed and no purulent fluid was drained. It was then packed with moist gauze. ASSESSMENT: RIGHT THIGH INFECTION WITH CELLULITIS, IMPROVING. Her white blood cell count did decrease down to 10.7. She is currently on broad spectrum antibiotics with final cultures pending. If she continues to have erythema, the wound may need to be debrided further. PLAN: 1. Continue local wound care. 2. Continue IV antibiotics. 3. Reassess the wound in a.m. to see if further debridement or drainage is needed. DICTATING PHYSICIAN: SUN HEAD M.D. [id number] PHY#: [id number] ID: [id number] JOB#: [id number] ACCT: [id number] cc: >
[2016-09-28] MEDS ORDERED: CALCIUM CARBONATE 500 MG TABLET PO PRN ×2 (21:03→22:17)
[2016-09-28] MEDS: TOPIRAMATE 100 MG TABLET PO SCH (22:02)
[2016-09-28] MEDS: NORMAL SALINE 10 ML SDV (SCHEDULED) IV SCH (23:14)
[2016-09-29] MEDS ORDERED: HYDRALAZINE HCL INJ/PF 20 MG/1 ML SDV IV PRN (00:06)
[2016-09-29] MEDS: PIPERACILLIN SODIUM/TAZOBACTAM 4.5 GM in NORMAL SALINE 100 ML IV SCH ×3 (03:21→15:14)
[2016-09-29] MEDS: VANCOMYCIN HCL 2,000 MG in DEXTROSE 5%-WATER 500 ML IV SCH (05:58)
[2016-09-29] MEDS: BUPROPION HCL 100 MG TABLET PO SCH ×3 (05:58→22:42)
[2016-09-29] MEDS ORDERED: METOCLOPRAMIDE HCL INJ/PF 10 MG/2 ML SDV ONE (08:08)
[2016-09-29] MEDS ORDERED: LIDOCAINE 2% INJ-PF (20 MG/ML) 10 ML AMPUL ONE (08:08)
[2016-09-29] MEDS: OMEGA-3 ACID ETHYL ESTERS 1 GM CAPSULE PO SCH ×2 (08:26→17:29)
[2016-09-29] MEDS: CALCIUM CARBONATE 250 MG/VITAMIN D3 125 UNIT TABLET PO SCH (08:26)
[2016-09-29] MEDS: NORMAL SALINE 10 ML SDV (SCHEDULED) IV SCH ×2 (09:50→22:43)
[2016-09-29] MEDS: SITAGLIPTIN PHOSPHATE 50 MG TABLET PO SCH (09:51)
[2016-09-29] MEDS: DOCUSATE SODIUM 100 MG CAPSULE PO SCH ×2 (10:10→17:29)
[2016-09-29 10:31] LABS: ABSOLUTE BASOPHILS # (AUTO) 0.1 10^3/uL (0.0-0.2); ABSOLUTE EOSINOPHILS # (AUTO) 0.3 10^3/uL (0.0-0.6); ABSOLUTE LYMPHOCYTES (AUTO) 1.2 10^3/uL (0.5-4.7); ABSOLUTE MONOCYTES (AUTO) 0.7 10^3/uL (0.1-1.4); ABSOLUTE NEUT (AUTO) 6.3 10^3/uL (1.7-8.2); BASOPHILS % (AUTO) 1.2 % (0-2); EOSINOPHILS % (AUTO) 3.9 % (0-6); HEMATOCRIT 29.8 % (36.0-47.0); HEMOGLOBIN 9.8 g/dL (12.0-15.5); HGB HCT DIFFERENCE -0.4; LYMPHOCYTES % (AUTO) 13.7 % (13-45); MEAN CORPUSCULAR HEMOGLOBIN 27.5 pg (27.0-33.4); MEAN CORPUSCULAR VOLUME 83 fl (80-97); MONOCYTES % (AUTO) 8.2 % (3-13); RED BLOOD COUNT 3.57 10^6/uL (3.72-5.28); RED CELL DISTRIBUTION WIDTH 14.2 % (11.5-14.0); WHITE BLOOD COUNT 8.6 10^3/uL (4.0-10.5)
[2016-09-29] MEDS ORDERED: RAMIPRIL 10 MG CAPSULE PO ONE (14:00)
[2016-09-29] MEDS: CITALOPRAM HYDROBROMIDE 20 MG TABLET PO SCH (17:29)
[2016-09-29] MEDS: MULTIVITAMIN TABLET PO SCH (17:29)
[2016-09-29] MEDS: ATORVASTATIN CALCIUM 10 MG TABLET PO SCH (17:29)
[2016-09-29] MEDS: LUBIPROSTONE 24 MCG CAPSULE PO SCH (17:29)
[2016-09-29] MEDS: FENOFIBRATE NANOCRYSTALLIZED 145 MG TABLET PO SCH (17:29)
--- NOTE | 2016-09-29 18:27 | PDOC PROGRESS REPORT ---
Subjective Progress Note for:: 09/29/16 Subjective:: Patient underwent further debridement of abscess in the OR She is quite stable no fever no chills controlled pain Physical Exam Vital Signs: Temp Pulse Resp BP Pulse Ox 97.8 F 64 16 142/82 H 96 09/29/16 18:11 09/29/16 18:11 09/29/16 18:11 09/29/16 18:11 09/29/16 18:11 Intake & Output 09/28/16 09/29/16 09/30/16 00:59 00:59 00:59 Intake Total 1924 2410 480 Balance 1924 2410 480 Weight 155.6 kg General appearance: PRESENT: morbidly obese Head exam: PRESENT: atraumatic, normocephalic Eye exam: PRESENT: conjunctiva pink, EOMI, PERRLA. ABSENT: scleral icterus Neck exam: ABSENT: carotid bruit, JVD, lymphadenopathy, thyromegaly Respiratory exam: PRESENT: clear to auscultation [place]. ABSENT: rales, rhonchi, wheezes Pulses: PRESENT: normal dorsalis pedis pul GI/Abdominal exam: PRESENT: normal bowel sounds, soft. ABSENT: distended, guarding, mass, organolmegaly, rebound, tenderness Extremities exam: PRESENT: other - Right thigh redness persists around the abscess no lymphangitic streaking Results Laboratory Results: 09/29/16 10:05 09/28/16 05:03 09/28/16 09/29/16 05:03 10:05 WBC 8.6 RBC 3.57 L Hgb 9.8 L Hct 29.8 L MCV 83 MCH 27.5 MCHC 33.0 RDW 14.2 H Plt Count 316 Seg Neutrophils % 73.0 Lymphocytes % 13.7 Monocytes % 8.2 Eosinophils % 3.9 Basophils % 1.2 Absolute Neutrophils 6.3 Absolute Lymphocytes 1.2 Absolute Monocytes 0.7 Absolute Eosinophils 0.3 Absolute Basophils 0.1 Transferrin 214 09/27/16 02:55 Clean Catch Midstream Urine Culture - Final Escherichia Coli Impressions: Guidance Fluoroscopy 09/28/16 00:00 IMPRESSION: SUCCESSFUL PLACEMENT OF A 5 FR DUAL LUMEN 47 CM PICC IN THE left basilic VEIN. Interventional Vascular Procedure 09/28/16 00:00 IMPRESSION: SUCCESSFUL PLACEMENT OF A 5 FR DUAL LUMEN 47 CM PICC IN THE left basilic VEIN. PICC Line Insertion 09/28/16 00:00 IMPRESSION: SUCCESSFUL PLACEMENT OF A 5 FR DUAL LUMEN 47 CM PICC IN THE left basilic VEIN. Assessment & Plan - Diagnosis (1) Abscess of right thigh Is this a current diagnosis for this admission?: Yes (2) UTI (urinary tract infection) Qualifiers: Urinary tract infection type: acute cystitis Hematuria presence: without hematuria Qualified Code(s): N30.00 - Acute cystitis without hematuria Is this a current diagnosis for this admission?: Yes (3) Diabetes mellitus type 2 in obese Is this a current diagnosis for this admission?: Yes (4) Morbid obesity with BMI of 50.0-59.9, adult Is this a current diagnosis for this admission?: Yes - Time Time Spent with patient: Continue present management repeat labs in a.m. Time Spent with patient: 15-24 minutes
[2016-09-29] MEDS ORDERED: LIDOCAINE 1%/EPINEPHRINE INJ 20 ML VIAL ONE (18:37)
[2016-09-29] MEDS ORDERED: PROPOFOL INJ 200 MG/20 ML VIAL IV ONE (18:39)
[2016-09-29] MEDS ORDERED: FENTANYL CITRATE INJ/PF 100 MCG/2 ML AMPUL ONE (18:39)
[2016-09-29] MEDS ORDERED: DEXMEDETOMIDINE INJ 80 MCG/20 ML VIAL IV ONE (18:39)
[2016-09-29] MEDS ORDERED: MIDAZOLAM 2 MG/2 ML INJ ONE (18:39)
[2016-09-29] MEDS ORDERED: ACETAMINOPHEN 100 ML IV ONE (18:39)
[2016-09-29] MEDS ORDERED: LIDOCAINE 1%/EPINEPHRINE INJ 20 ML VIAL INJ ONE (20:26)
[2016-09-29] MEDS ORDERED: HYDROMORPHONE HCL INJ/PF 2 MG/ML AMPULE IV PRN (20:54)
--- NOTE | 2016-09-29 21:28 | OPERATIVE REPORT E ---
Operative Report NAME: JUSTINE DU : 1950 AGE: 65Y DATE OF SURGERY: 09/29/2016 ROOM: 425 PREOPERATIVE DIAGNOSIS: Wound, right medial thigh with cellulitis. POSTOPERATIVE DIAGNOSIS: Wound, right medial thigh with cellulitis with necrotic fat. OPERATION: Debridement of right thigh wound. SURGEON: SUN HEAD M.D. ANESTHESIA: MAC with local. INDICATION FOR PROCEDURE: The patient is a 65-year-old female with presents with wound on the medial aspect of the right thigh. She had undergone incision and drainage of this. Cultures grew out MRSA. She had been placed on appropriate antibiotics. However, she continued to have erythema around the wound with it being difficult to do dressing changes and being very indurated. FINDINGS OF PROCEDURE: A 10 x 5 cm area of subcutaneous tissue and skin was excised, containing necrotic fat tissue. PROCEDURE: After informed consent was obtained, the patient was taken to the operating room and placed in a supine position. MAC anesthesia was administered. The patient's right thigh was then prepped and draped in the usual sterile fashion. The area around the wound was then injected with 1% lidocaine. An elliptical incision was then made in the skin to encompass the previous wound, going back to healthy subcutaneous tissue. This incision was then deepened down into the subcutaneous tissues with the area of induration being excised. Hemostasis was obtained using electrocautery. The wound was then irrigated and a moist dressing was placed in the wound. Dry dressings were then wrapped around the wound. The patient was then awakened and taken from the procedure room in stable condition. ESTIMATED BLOOD LOSS: 10 cc. COMPLICATIONS: None. CONDITION: The patient at the end of the procedure was stable. SPECIMENS: Debrided right thigh tissue. DRAINS/PACKS: The wound was packed open. CLASSIFICATION OF WOUND: Dirty. DICTATING PHYSICIAN: SUN HEAD M.D. [id number] PHY#: [id number] ID: [id number] JOB#: [id number] ACCT: [id number] cc:SUN HEAD M.D. >
[2016-09-29] MEDS: CEFUROXIME 250 MG TABLET PO SCH (22:42)
[2016-09-29] MEDS: TOPIRAMATE 100 MG TABLET PO SCH (22:42)
[2016-09-30] MEDS: BUPROPION HCL 100 MG TABLET PO SCH ×3 (05:17→22:04)
[2016-09-30 06:01] LABS: ABSOLUTE BASOPHILS # (AUTO) 0.1 10^3/uL (0.0-0.2); ABSOLUTE EOSINOPHILS # (AUTO) 0.3 10^3/uL (0.0-0.6); ABSOLUTE LYMPHOCYTES (AUTO) 1.3 10^3/uL (0.5-4.7); ABSOLUTE MONOCYTES (AUTO) 0.8 10^3/uL (0.1-1.4); BASOPHILS % (AUTO) 1.4 % (0-2); EOSINOPHILS % (AUTO) 3.7 % (0-6); HEMATOCRIT 29.8 % (36.0-47.0); HEMOGLOBIN 9.7 g/dL (12.0-15.5); HGB HCT DIFFERENCE -0.7; LYMPHOCYTES % (AUTO) 14.8 % (13-45); MEAN CORPUSCULAR HEMOGLOBIN 27.3 pg (27.0-33.4); MEAN CORPUSCULAR HGB CONC 32.5 g/dL (32.0-36.0); MEAN CORPUSCULAR VOLUME 84 fl (80-97); MONOCYTES % (AUTO) 9.8 % (3-13); RED BLOOD COUNT 3.55 10^6/uL (3.72-5.28); RED CELL DISTRIBUTION WIDTH 14.4 % (11.5-14.0); SEGMENTED NEUTROPHILS % (AUTO) 70.3 % (42-78); WHITE BLOOD COUNT 8.5 10^3/uL (4.0-10.5)
[2016-09-30 06:21] LABS: ANION GAP 10 (5-19); BLOOD UREA NITROGEN 23 mg/dL (7-20); CALCIUM 9.6 mg/dL (8.4-10.2); CARBON DIOXIDE 24 mmol/L (22-30); CHLORIDE 112 mmol/L (98-107); CREATININE RESULT 1.25 mg/dL (0.52-1.25); GLUCOSE 103 mg/dL (75-110); POTASSIUM 3.7 mmol/L (3.6-5.0); SODIUM 145.7 mmol/L (137-145)
[2016-09-30] MEDS: VANCOMYCIN HCL 2,000 MG in DEXTROSE 5%-WATER 500 ML IV SCH (06:40)
[2016-09-30] MEDS: RAMIPRIL 10 MG CAPSULE PO SCH (08:44)
[2016-09-30] MEDS: CALCIUM CARBONATE 250 MG/VITAMIN D3 125 UNIT TABLET PO SCH (08:44)
[2016-09-30] MEDS: MULTIVITAMIN TABLET PO SCH (08:45)
[2016-09-30] MEDS: NORMAL SALINE 10 ML SDV (SCHEDULED) IV SCH ×2 (08:45→22:04)
[2016-09-30] MEDS: LUBIPROSTONE 24 MCG CAPSULE PO SCH ×2 (08:45→17:24)
[2016-09-30] MEDS: ATENOLOL 50 MG TABLET PO SCH (08:45)
[2016-09-30] MEDS: ATORVASTATIN CALCIUM 10 MG TABLET PO SCH (08:46)
[2016-09-30] MEDS: ASPIRIN 81 MG TABLET, CHEWABLE PO SCH (08:46)
[2016-09-30] MEDS: CITALOPRAM HYDROBROMIDE 20 MG TABLET PO SCH (08:46)
[2016-09-30] MEDS: OMEGA-3 ACID ETHYL ESTERS 1 GM CAPSULE PO SCH ×2 (08:47→17:24)
[2016-09-30] MEDS: DOCUSATE SODIUM 100 MG CAPSULE PO SCH ×2 (08:47→17:25)
[2016-09-30] MEDS: SITAGLIPTIN PHOSPHATE 50 MG TABLET PO SCH (08:47)
[2016-09-30] MEDS: FENOFIBRATE NANOCRYSTALLIZED 145 MG TABLET PO SCH (08:47)
--- NOTE | 2016-09-30 11:17 | EKG REPORT ---
SEVERITY:- ABNORMAL ECG - SINUS RHYTHM LEFT VENTRICULAR HYPERTROPHY : Confirmed by: Ned Jessica 30-Sep-2016 11:15:53
--- NOTE | 2016-09-30 11:52 | PDOC PROGRESS REPORT ---
Subjective Progress Note for:: 09/30/16 Subjective:: Some thigh pain but improved Physical Exam Vital Signs: Temp Pulse Resp BP Pulse Ox 97.7 F 62 20 151/59 H 100 09/30/16 07:24 09/30/16 07:24 09/30/16 07:24 09/30/16 07:24 09/30/16 07:24 Intake & Output 09/29/16 09/30/16 10/01/16 06:59 06:59 06:59 Intake Total 1370 1535 Output Total 25 Balance 1370 1510 Weight 155.8 kg Extremities exam: PRESENT: other - Right inner thigh wound appears very clean with no purulent drainage. Minimal surrounding erythema. Results Laboratory Results: 09/30/16 05:30 09/30/16 05:30 09/30/16 09/30/16 05:30 05:30 WBC 8.5 RBC 3.55 L Hgb 9.7 L Hct 29.8 L MCV 84 MCH 27.3 MCHC 32.5 RDW 14.4 H Plt Count 320 Seg Neutrophils % 70.3 Lymphocytes % 14.8 Monocytes % 9.8 Eosinophils % 3.7 Basophils % 1.4 Absolute Neutrophils 6.0 Absolute Lymphocytes 1.3 Absolute Monocytes 0.8 Absolute Eosinophils 0.3 Absolute Basophils 0.1 Sodium 145.7 H Potassium 3.7 Chloride 112 H Carbon Dioxide 24 Anion Gap 10 BUN 23 H Creatinine 1.25 Est GFR ( Amer) 52 L Est GFR (Non-Af Amer) 43 L Glucose 103 Calcium 9.6 09/27/16 02:55 Clean Catch Midstream Urine Culture - Final Escherichia Coli Impressions: Guidance Fluoroscopy 09/28/16 00:00 IMPRESSION: SUCCESSFUL PLACEMENT OF A 5 FR DUAL LUMEN 47 CM PICC IN THE left basilic VEIN. Interventional Vascular Procedure 09/28/16 00:00 IMPRESSION: SUCCESSFUL PLACEMENT OF A 5 FR DUAL LUMEN 47 CM PICC IN THE left basilic VEIN. PICC Line Insertion 09/28/16 00:00 IMPRESSION: SUCCESSFUL PLACEMENT OF A 5 FR DUAL LUMEN 47 CM PICC IN THE left basilic VEIN. Assessment & Plan - Diagnosis (1) Abscess of right thigh Is this a current diagnosis for this admission?: YesPlan: Status post excisional debridement. The wound looks good. Taught the daughter dressing changes. May discharge the patient home with the dressing changes on by mouth antibiotics whenever patient feels comfortable. Follow-up with the wound care clinic as an outpatient.
[2016-09-30] MEDS: CEFUROXIME 250 MG TABLET PO SCH ×2 (11:54→22:04)
--- NOTE | 2016-09-30 15:57 | PDOC PROGRESS REPORT ---
Subjective Progress Note for:: 09/30/16 Subjective:: Patient is doing well She was back to the OR yesterday for debridement of the wound Is complaining of minimal pain no fever no chills Physical Exam Vital Signs: Temp Pulse Resp BP Pulse Ox 97.9 F 66 20 147/59 H 100 09/30/16 12:15 09/30/16 12:15 09/30/16 12:15 09/30/16 12:15 09/30/16 12:15 Intake & Output 09/29/16 09/30/16 10/01/16 00:59 00:59 00:59 Intake Total 2410 895 1500 Output Total 25 Balance 2410 870 1500 Weight 155.6 kg 155.8 kg General appearance: PRESENT: no acute distress, morbidly obese Head exam: PRESENT: atraumatic, normocephalic Eye exam: PRESENT: conjunctiva pink, EOMI, PERRLA. ABSENT: scleral icterus Ear exam: PRESENT: normal external ear exam Mouth exam: PRESENT: moist, tongue midline Neck exam: ABSENT: carotid bruit, JVD, lymphadenopathy, thyromegaly Respiratory exam: PRESENT: clear to auscultation [place]. ABSENT: rales, rhonchi, wheezes Cardiovascular exam: PRESENT: RRR. ABSENT: diastolic murmur, rubs, systolic murmur Pulses: PRESENT: normal dorsalis pedis pul Vascular exam: PRESENT: normal capillary refill GI/Abdominal exam: PRESENT: normal bowel sounds, soft. ABSENT: distended, guarding, mass, organolmegaly, rebound, tenderness Rectal exam: PRESENT: deferred Extremities exam: PRESENT: full ROM, other - Redness of the right upper thigh bandage is clean. ABSENT: calf tenderness, clubbing, pedal edema Neurological exam: PRESENT: alert, awake, oriented to person, oriented to place , oriented to time, oriented to situation, CN II-XII grossly intact. ABSENT: motor sensory deficit Psychiatric exam: PRESENT: appropriate affect, normal mood. ABSENT: homicidal ideation, suicidal ideation Skin exam: PRESENT: dry, intact, warm. ABSENT: cyanosis, rash Results Laboratory Results: 09/30/16 05:30 09/30/16 05:30 09/30/16 09/30/16 05:30 05:30 WBC 8.5 RBC 3.55 L Hgb 9.7 L Hct 29.8 L MCV 84 MCH 27.3 MCHC 32.5 RDW 14.4 H Plt Count 320 Seg Neutrophils % 70.3 Lymphocytes % 14.8 Monocytes % 9.8 Eosinophils % 3.7 Basophils % 1.4 Absolute Neutrophils 6.0 Absolute Lymphocytes 1.3 Absolute Monocytes 0.8 Absolute Eosinophils 0.3 Absolute Basophils 0.1 Sodium 145.7 H Potassium 3.7 Chloride 112 H Carbon Dioxide 24 Anion Gap 10 BUN 23 H Creatinine 1.25 Est GFR ( Amer) 52 L Est GFR (Non-Af Amer) 43 L Glucose 103 Calcium 9.6 09/27/16 02:55 Clean Catch Midstream Urine Culture - Final Escherichia Coli Impressions: Guidance Fluoroscopy 09/28/16 00:00 IMPRESSION: SUCCESSFUL PLACEMENT OF A 5 FR DUAL LUMEN 47 CM PICC IN THE left basilic VEIN. Interventional Vascular Procedure 09/28/16 00:00 IMPRESSION: SUCCESSFUL PLACEMENT OF A 5 FR DUAL LUMEN 47 CM PICC IN THE left basilic VEIN. PICC Line Insertion 09/28/16 00:00 IMPRESSION: SUCCESSFUL PLACEMENT OF A 5 FR DUAL LUMEN 47 CM PICC IN THE left basilic VEIN. Assessment & Plan - Diagnosis (1) Abscess of right thigh Is this a current diagnosis for this admission?: Yes (2) UTI (urinary tract infection) Qualifiers: Urinary tract infection type: acute cystitis Hematuria presence: without hematuria Qualified Code(s): N30.00 - Acute cystitis without hematuria Is this a current diagnosis for this admission?: Yes (3) Diabetes mellitus type 2 in obese Is this a current diagnosis for this admission?: Yes (4) Morbid obesity with BMI of 50.0-59.9, adult Is this a current diagnosis for this admission?: Yes - Time Time Spent with patient: Continue present management ; continue vancomycin and Ceftin Time Spent with patient: 15-24 minutes
[2016-09-30] MEDS: TOPIRAMATE 100 MG TABLET PO SCH (22:04)
[2016-10-01] MEDS: BUPROPION HCL 100 MG TABLET PO SCH ×3 (05:32→22:21)
[2016-10-01] MEDS: VANCOMYCIN HCL 1,500 MG in DEXTROSE 5%-WATER 250 ML IV SCH (05:33)
[2016-10-01] MEDS: LUBIPROSTONE 24 MCG CAPSULE PO SCH ×2 (09:27→17:03)
[2016-10-01] MEDS: RAMIPRIL 10 MG CAPSULE PO SCH (09:27)
[2016-10-01] MEDS: ATORVASTATIN CALCIUM 10 MG TABLET PO SCH (09:27)
[2016-10-01] MEDS: CALCIUM CARBONATE 250 MG/VITAMIN D3 125 UNIT TABLET PO SCH (09:27)
[2016-10-01] MEDS: OMEGA-3 ACID ETHYL ESTERS 1 GM CAPSULE PO SCH ×2 (09:28→16:59)
[2016-10-01] MEDS: ASPIRIN 81 MG TABLET, CHEWABLE PO SCH (09:29)
[2016-10-01] MEDS: ATENOLOL 50 MG TABLET PO SCH (09:29)
[2016-10-01] MEDS: CITALOPRAM HYDROBROMIDE 20 MG TABLET PO SCH (09:29)
[2016-10-01] MEDS: FENOFIBRATE NANOCRYSTALLIZED 145 MG TABLET PO SCH (09:29)
[2016-10-01] MEDS: MULTIVITAMIN TABLET PO SCH (09:30)
[2016-10-01] MEDS: SITAGLIPTIN PHOSPHATE 50 MG TABLET PO SCH (09:30)
[2016-10-01] MEDS: NORMAL SALINE 10 ML SDV (SCHEDULED) IV SCH ×2 (09:31→22:30)
[2016-10-01] MEDS: DOCUSATE SODIUM 100 MG CAPSULE PO SCH ×2 (09:32→17:03)
[2016-10-01] MEDS: CEFUROXIME 250 MG TABLET PO SCH ×2 (12:36→22:21)
--- NOTE | 2016-10-01 12:45 | PDOC PROGRESS REPORT ---
Subjective Progress Note for:: 10/01/16 Subjective:: doing well no complaints no fever or chills Physical Exam Vital Signs: Temp Pulse Resp BP Pulse Ox 97.7 F 72 16 149/56 H 99 10/01/16 07:28 10/01/16 07:28 10/01/16 07:28 10/01/16 07:28 10/01/16 07:28 Intake & Output 09/30/16 10/01/16 10/02/16 00:59 00:59 00:59 Intake Total 895 1500 250 Output Total 25 Balance 870 1500 250 Weight 155.8 kg General appearance: PRESENT: no acute distress, morbidly obese, well-developed, well-nourished Head exam: PRESENT: atraumatic, normocephalic Eye exam: PRESENT: conjunctiva pink, EOMI, PERRLA. ABSENT: scleral icterus Ear exam: PRESENT: normal external ear exam Mouth exam: PRESENT: moist, tongue midline Neck exam: ABSENT: carotid bruit, JVD, lymphadenopathy, thyromegaly Respiratory exam: PRESENT: clear to auscultation [place]. ABSENT: rales, rhonchi, wheezes Cardiovascular exam: PRESENT: RRR. ABSENT: diastolic murmur, rubs, systolic murmur Pulses: PRESENT: normal dorsalis pedis pul Vascular exam: PRESENT: normal capillary refill GI/Abdominal exam: PRESENT: normal bowel sounds, soft. ABSENT: distended, guarding, mass, organolmegaly, rebound, tenderness Rectal exam: PRESENT: deferred Extremities exam: PRESENT: full ROM. ABSENT: calf tenderness, clubbing, pedal edema Neurological exam: PRESENT: alert, awake, oriented to person, oriented to place , oriented to time, oriented to situation, CN II-XII grossly intact. ABSENT: motor sensory deficit Psychiatric exam: PRESENT: appropriate affect, normal mood. ABSENT: homicidal ideation, suicidal ideation Skin exam: PRESENT: dry, intact, warm. ABSENT: cyanosis, rash Results Laboratory Results: 09/30/16 05:30 09/30/16 05:30 09/27/16 02:55 Urine Culture - Final Clean Catch Midstream Escherichia Coli 09/26/16 00:13 Gram Stain - Final Leg - Spider Bite Wound Culture - Final Mrsa (Meth Resis Staph Aureus) No Anaerobic Organisms Impressions: Guidance Fluoroscopy 09/28/16 00:00 IMPRESSION: SUCCESSFUL PLACEMENT OF A 5 FR DUAL LUMEN 47 CM PICC IN THE left basilic VEIN. Interventional Vascular Procedure 09/28/16 00:00 IMPRESSION: SUCCESSFUL PLACEMENT OF A 5 FR DUAL LUMEN 47 CM PICC IN THE left basilic VEIN. PICC Line Insertion 09/28/16 00:00 IMPRESSION: SUCCESSFUL PLACEMENT OF A 5 FR DUAL LUMEN 47 CM PICC IN THE left basilic VEIN. Assessment & Plan - Diagnosis (1) Abscess of right thigh Is this a current diagnosis for this admission?: Yes (2) UTI (urinary tract infection) Qualifiers: Urinary tract infection type: acute cystitis Hematuria presence: without hematuria Qualified Code(s): N30.00 - Acute cystitis without hematuria Is this a current diagnosis for this admission?: Yes (3) Diabetes mellitus type 2 in obese Is this a current diagnosis for this admission?: Yes (4) Morbid obesity with BMI of 50.0-59.9, adult Is this a current diagnosis for this admission?: Yes - Time Time Spent with patient: continue present management discharge as per surgery Patient is not sure that she will need home health and nusring Her daughter may help with dressing changes at home Time Spent with patient: 15-24 minutes
[2016-10-01] MEDS: TOPIRAMATE 100 MG TABLET PO SCH (22:21)
[2016-10-02] MEDS: BUPROPION HCL 100 MG TABLET PO SCH ×2 (05:35→13:27)
[2016-10-02] MEDS: CALCIUM CARBONATE 250 MG/VITAMIN D3 125 UNIT TABLET PO SCH (08:21)
[2016-10-02] MEDS: OMEGA-3 ACID ETHYL ESTERS 1 GM CAPSULE PO SCH ×2 (08:21→16:38)
[2016-10-02] MEDS: VANCOMYCIN HCL 1,500 MG in DEXTROSE 5%-WATER 250 ML IV SCH (09:50)
[2016-10-02] MEDS: NORMAL SALINE 10 ML SDV (SCHEDULED) IV SCH (09:51)
[2016-10-02] MEDS: MULTIVITAMIN TABLET PO SCH (09:51)
[2016-10-02] MEDS: FENOFIBRATE NANOCRYSTALLIZED 145 MG TABLET PO SCH (09:51)
[2016-10-02] MEDS: ATENOLOL 50 MG TABLET PO SCH (09:52)
[2016-10-02] MEDS: CITALOPRAM HYDROBROMIDE 20 MG TABLET PO SCH (09:52)
[2016-10-02] MEDS: RAMIPRIL 10 MG CAPSULE PO SCH (09:53)
[2016-10-02] MEDS: ASPIRIN 81 MG TABLET, CHEWABLE PO SCH (09:53)
[2016-10-02] MEDS: CEFUROXIME 250 MG TABLET PO SCH (09:53)
[2016-10-02] MEDS: SITAGLIPTIN PHOSPHATE 50 MG TABLET PO SCH (09:53)
[2016-10-02] MEDS: ATORVASTATIN CALCIUM 10 MG TABLET PO SCH (09:53)
[2016-10-02] MEDS: DOCUSATE SODIUM 100 MG CAPSULE PO SCH (09:54)
[2016-10-02] MEDS: LUBIPROSTONE 24 MCG CAPSULE PO SCH (09:54)
[2016-10-02 12:19] VITALS: BP 149/65
--- NOTE | 2016-10-02 16:11 | PDOC DISCHARGE SUMMARY ---
General - Admit/Disc Date/PCP Admission Date/Primary Care Provider: 09/27/16 01:29 LUCERO BURT MD Discharge Date: 10/02/16 - Discharge Diagnosis (1) Abscess of right thigh Is this a current diagnosis for this admission?: Yes (2) UTI (urinary tract infection) Is this a current diagnosis for this admission?: Yes (3) Diabetes mellitus type 2 in obese Is this a current diagnosis for this admission?: Yes (4) Morbid obesity with BMI of 50.0-59.9, adult Is this a current diagnosis for this admission?: Yes - Additional Information Resuscitation Status: Full Code Home Medications: Aspirin [Aspirin 81 mg Chewable Tablet] 81 mg PO DAILY 09/27/16 Atenolol [Tenormin 50 mg Tablet] 50 mg PO DAILY 09/27/16 Atorvastatin Calcium [Lipitor 10 mg Tablet] 10 mg PO DAILY 09/27/16 Bupropion HCl [Wellbutrin Xl 300mg 24hr Tablet] 1 tab PO DAILY 09/27/16 Calcium Carbonate/Vitamin D3 [Calcium 600-Vit D3 800 Tablet] 1 each PO DAILY Citalopram Hydrobromide [Celexa 20 mg Tablet] 10 mg PO DAILY 09/27/16 Fenofibrate Nanocrystallized [Tricor 145 mg Tablet] 145 mg PO DAILY 09/27/16 Furosemide [Lasix] 30 mg PO QAM 09/27/16 Glucosamine Sulfate 2Kcl [Glucosamine Sulfate] 2,000 mg PO BID 09/27/16 Krill/Om-3/Dha/Epa/Phospho/Ast [Krill Oil 500 mg Softgel] 1 each PO BID Lubiprostone [Amitiza 24 Mcg Capsule] 24 mcg PO BID 09/27/16 Multivitamin [Tab-A-Del] 1 each PO DAILY 09/27/16 Ramipril [Altace 10 mg Capsule] 20 mg PO DAILY 09/27/16 Sitagliptin Phosphate [Januvia 50 mg Tablet] 50 mg PO DAILY 09/27/16 Topiramate [Topamax] 200 mg PO QHS 09/27/16 Vit A/C/E AC/Znox/Cupric Oxide [Eye Vitamin-Minerals Tablet] 1 each PO BID 09/27 Cefuroxime Axetil [Ceftin 250 mg Tablet] 250 mg PO Q12 #10 tablet 10/02/16 Clindamycin HCl [Cleocin HCl] 300 mg PO QID #40 capsule 10/02/16 History of Present Illness Patient complains of: fever chills redness left upper thigh History of Present Illness: JUSTINE DU is a 65 year old female with underlying type II diabetes mellitus, anemia, chronic kidney disease, chronic nicotine dependency, arthritis, depression, hypertension, and hyperlipidemia, who presents to the emergency room for evaluation of a painful inflamed area on her upper medial right thigh present for approximately 5 days. Combination throbbing and sharp pain which worsens with ambulation or contact with the area. Started out as a red bump. 2 day history of shaking chills. No prior such episodes. No known trauma to the site. No history of MRSA infection. Has undergone incision and drainage by the surgeon in the emergency room. Patient has been discussed with emergency room physician who evaluated the patient. . Hospital Course Hospital Course: Patient was admitted with an abscess of the right upper thigh The abscess was drained in the ED; Debridement of the wound was performed twice in the OR after during this hospital stay Culture grew MRSA staph Patient was treated with vancomycin IV She also was diagnosed with UTI and a gram-negative sensitive to Ceftin was isolated She was treated with IV Zosyn and then Ceftin by mouth Patient's condition improved greatly History be discharged home to have dressing and packing change by her daughter daily She was discharged on clindamycin and Ceftin Physical Exam Vital Signs: Temp Pulse Resp BP Pulse Ox 98.1 F 56 L 24 H 149/65 H 100 10/02/16 11:06 10/02/16 14:00 10/02/16 11:06 10/02/16 11:06 10/02/16 11:06 Intake & Output 10/01/16 10/02/16 10/03/16 00:59 00:59 00:59 Intake Total 1500 1979 1059 Balance 1500 1979 106 Weight 155.8 kg 156.7 kg General appearance: PRESENT: no acute distress, morbidly obese, well-developed, well-nourished Head exam: PRESENT: atraumatic, normocephalic Eye exam: PRESENT: conjunctiva pink, EOMI, PERRLA. ABSENT: scleral icterus Ear exam: PRESENT: normal external ear exam Mouth exam: PRESENT: moist, tongue midline Neck exam: ABSENT: carotid bruit, JVD, lymphadenopathy, thyromegaly Respiratory exam: PRESENT: clear to auscultation [place]. ABSENT: rales, rhonchi, wheezes Cardiovascular exam: PRESENT: RRR. ABSENT: diastolic murmur, rubs, systolic murmur Pulses: PRESENT: normal dorsalis pedis pul Vascular exam: PRESENT: normal capillary refill GI/Abdominal exam: PRESENT: normal bowel sounds, soft. ABSENT: distended, guarding, mass, organolmegaly, rebound, tenderness Rectal exam: PRESENT: deferred Extremities exam: PRESENT: full ROM, other - Redness right upper thigh minimal. ABSENT: calf tenderness, clubbing, pedal edema Neurological exam: PRESENT: alert, awake, oriented to person, oriented to place , oriented to time, oriented to situation, CN II-XII grossly intact. ABSENT: motor sensory deficit Psychiatric exam: PRESENT: appropriate affect, normal mood. ABSENT: homicidal ideation, suicidal ideation Skin exam: PRESENT: dry, intact, warm. ABSENT: cyanosis, rash Results Laboratory Results: 09/30/16 05:30 09/30/16 05:30 Labs- Last Values WBC 8.5 10^3/uL (4.0-10.5) 09/30/16 05:30 RBC 3.55 10^6/uL (3.72-5.28) L 09/30/16 05:30 Hgb 9.7 g/dL (12.0-15.5) L 09/30/16 05:30 Hct 29.8 % (36.0-47.0) L 09/30/16 05:30 MCV 84 fl (80-97) 09/30/16 05:30 MCH 27.3 pg (27.0-33.4) 09/30/16 05:30 MCHC 32.5 g/dL (32.0-36.0) 09/30/16 05:30 RDW 14.4 % (11.5-14.0) H 09/30/16 05:30 Plt Count 320 10^3/uL (150-450) 09/30/16 05:30 Seg Neutrophils % 70.3 % (42-78) 09/30/16 05:30 Lymphocytes % 14.8 % (13-45) 09/30/16 05:30 Monocytes % 9.8 % (3-13) 09/30/16 05:30 Eosinophils % 3.7 % (0-6) 09/30/16 05:30 Basophils % 1.4 % (0-2) 09/30/16 05:30 Absolute Neutrophils 6.0 10^3/uL (1.7-8.2) 09/30/16 05:30 Absolute Lymphocytes 1.3 10^3/uL (0.5-4.7) 09/30/16 05:30 Absolute Monocytes 0.8 10^3/uL (0.1-1.4) 09/30/16 05:30 Absolute Eosinophils 0.3 10^3/uL (0.0-0.6) 09/30/16 05:30 Absolute Basophils 0.1 10^3/uL (0.0-0.2) 09/30/16 05:30 Retic Count (auto) 1.07 % (0.66-2.85) 09/28/16 05:03 Absolute Retic 0.037 10^6/uL (0.028-0.122) 09/28/16 05:03 Sodium 145.7 mmol/L (137-145) H 09/30/16 05:30 Potassium 3.7 mmol/L (3.6-5.0) 09/30/16 05:30 Chloride 112 mmol/L (98-107) H 09/30/16 05:30 Carbon Dioxide 24 mmol/L (22-30) 09/30/16 05:30 Anion Gap 10 (5-19) 09/30/16 05:30 BUN 23 mg/dL (7-20) H 09/30/16 05:30 Creatinine 1.25 mg/dL (0.52-1.25) 09/30/16 05:30 Est GFR ( Amer) 52 (>60) L 09/30/16 05:30 Est GFR (Non-Af Amer) 43 (>60) L 09/30/16 05:30 Glucose 103 mg/dL (75-110) 09/30/16 05:30 POC Glucose 119 mg/dL (70-110) H 10/02/16 11:38 Hemoglobin A1c % 5.5 % (4.7-6.0) 09/28/16 05:03 Calcium 9.6 mg/dL (8.4-10.2) 09/30/16 05:30 Iron 35.8 ug/dL (37-170) L 09/28/16 05:03 TIBC 279 ug/dL (250-450) 09/28/16 05:03 % Saturation 13 % 09/28/16 05:03 Transferrin 214 mg/dL (200-370) 09/28/16 05:03 Ferritin 78.70 ng/mL (11.1-264.0) 09/28/16 05:03 Total Bilirubin 0.5 mg/dL (0.2-1.3) 09/26/16 22:40 Direct Bilirubin 0.0 mg/dL (0.0-0.3) 09/26/16 22:40 AST 19 U/L (14-36) 09/26/16 22:40 ALT 32 U/L (9-52) 09/26/16 22:40 Alkaline Phosphatase 64 U/L (38-126) 09/26/16 22:40 Total Protein 6.8 g/dL (6.3-8.2) 09/26/16 22:40 Albumin 3.7 g/dL (3.5-5.0) 09/26/16 22:40 Vitamin B12 > 1000.0 pg/mL (239-931) H 09/28/16 05:03 Folate 13.10 ng/mL (>2.76) 09/28/16 05:03 Urine Color YELLOW 09/27/16 02:55 Urine Appearance CLOUDY 09/27/16 02:55 Urine pH 5.0 (5.0-9.0) 09/27/16 02:55 Ur Specific [place] 1.014 09/27/16 02:55 Urine Protein NEGATIVE mg/dL (NEGATIVE) 09/27/16 02:55 Urine Glucose (UA) NEGATIVE mg/dL (NEGATIVE) 09/27/16 02:55 Urine Ketones NEGATIVE mg/dL (NEGATIVE) 09/27/16 02:55 Urine Blood NEGATIVE (NEGATIVE) 09/27/16 02:55 Urine Nitrite POSITIVE (NEGATIVE) H 09/27/16 02:55 Urine Bilirubin NEGATIVE (NEGATIVE) 09/27/16 02:55 Urine Urobilinogen NEGATIVE mg/dL (<2.0) 09/27/16 02:55 Ur Leukocyte Esterase LARGE (NEGATIVE) H 09/27/16 02:55 Urine WBC (Auto) 73 /HPF 09/27/16 02:55 Urine RBC (Auto) 5 /HPF 09/27/16 02:55 U Hyaline Cast (Auto) 3 /LPF 09/27/16 02:55 Urine Bacteria (Auto) 2+ /HPF 09/27/16 02:55 Urine WBC Clumps FEW /HPF 09/27/16 02:55 Squamous Epi Cells Auto 20 /HPF 09/27/16 02:55 Urine Mucus (Auto) RARE /LPF 09/27/16 02:55 Urine Ascorbic Acid 40 (NEGATIVE) H 09/27/16 02:55 Time Trough Drawn 0530 09/30/16 05:30 Vancomycin Trough 17.2 ug/mL (5.0-20.0) 09/30/16 05:30 09/27/16 02:55 Urine Culture - Final Clean Catch Midstream Escherichia Coli 09/26/16 00:13 Gram Stain - Final Leg - Spider Bite Wound Culture - Final Mrsa (Meth Resis Staph Aureus) No Anaerobic Organisms EKG Comments: SINUS RHYTHM [LVH] . LEFT VENTRICULAR HYPERTROPHY Impressions: Guidance Fluoroscopy 09/28/16 00:00 IMPRESSION: SUCCESSFUL PLACEMENT OF A 5 FR DUAL LUMEN 47 CM PICC IN THE left basilic VEIN. Interventional Vascular Procedure 09/28/16 00:00 IMPRESSION: SUCCESSFUL PLACEMENT OF A 5 FR DUAL LUMEN 47 CM PICC IN THE left basilic VEIN. PICC Line Insertion 09/28/16 00:00 IMPRESSION: SUCCESSFUL PLACEMENT OF A 5 FR DUAL LUMEN 47 CM PICC IN THE left basilic VEIN. Plan Discharge Plan: Discharged home follow-up in one week with Dr. Rowell
== END 2016-10-02 16:45 | disposition home or self-care (01) | DRG 571 ==
LOC: ER 19:29 → UNDOADMIN 09-27 00:47 → EH 09-27 00:47 → 4S 09-27 02:45
PROVIDERS: ADMIT Family Medicine; ATTEND Family Medicine
PROC: 0J9M0ZZ Drainage of Left Upper Leg Subcutaneous Tissue and Fascia, Open Approach (ICD-10-PCS; 2016-09-27)
PROC: 02HV33Z Insertion of Infusion Device into Superior Vena Cava, Percutaneous Approach (ICD-10-PCS; 2016-09-28)
PROC: B5181ZA Fluoroscopy of Superior Vena Cava using Low Osmolar Contrast, Guidance (ICD-10-PCS; 2016-09-28)
PROC: B548ZZA Ultrasonography of Superior Vena Cava, Guidance (ICD-10-PCS; 2016-09-28)
PROC: 0JBM0ZZ Excision of Left Upper Leg Subcutaneous Tissue and Fascia, Open Approach (ICD-10-PCS; principal; 2016-09-29 16:15)
DX: L02.415 Cutaneous abscess of right lower limb (principal); N39.0 Urinary tract infection, site not specified; Z68.43 Body mass index [BMI] 50.0-59.9, adult; B95.62 Methicillin resistant Staphylococcus aureus infection as the cause of diseases classified elsewhere; E66.01 Morbid (severe) obesity due to excess calories; I12.9 Hypertensive chronic kidney disease with stage 1 through stage 4 chronic kidney disease, or unspecified chronic kidney disease; E11.22 Type 2 diabetes mellitus with diabetic chronic kidney disease; N18.3 Chronic kidney disease, stage 3 (moderate); D64.9 Anemia, unspecified; F32.9 Major depressive disorder, single episode, unspecified; E78.5 Hyperlipidemia, unspecified; Z79.899 Other long term (current) drug therapy; F17.200 Nicotine dependence, unspecified, uncomplicated
CPT/HCPCS: 36415; 36569; 400; 76937; 77001; 80048; 80053; 80202; 81001; 82607; 82728; 82746; 82962; 83036; 83540; 83550; 84466; 85025; 85045; 87040; 87070; 87075; 87077; 87086; 87088; 87186; 87205; 88302; 90471; 90686; 90715; 93005; 93010; 96372; 99284; J0131; J0360; J1170; J1642; J1644; J2250; J2543; J2704; J2765; J3010; J3370; J3490; J7060; S0119

== ENCOUNTER 2017-05-04 06:35 | Day surgery (SDC) | payer MEDICARE, BC ==
[~2017-05-04 06:35] MED LIST: KETOROLAC TROMETHAMINE 0.45% 4 DROP/0.4 ML DROPERETTE OD PRN
[2017-05-04] MEDS: CYCLOPENTOLATE 0.2%/PHENYLEPHRINE 1% OPH SOLN 2 ML OD PRN ×3 (06:52→07:12)
[2017-05-04] MEDS: BESIFLOXACIN HCL 0.6% OPH SUSP 5 ML BOTTLE OD PRN ×3 (06:52→07:56)
[2017-05-04] MEDS: TROPICAMIDE 1% OPH SOLN 3 ML OD PRN ×3 (06:52→07:12)
[2017-05-04] MEDS: TETRACAINE HCL 0.5% OPH SOLN 0.6 ML DROPERETTE OD PRN ×3 (06:53→07:37)
[2017-05-04] MEDS ORDERED: LIDOCAINE 1% INJ-PF (10 MG/ML) 30 ML SDV ONE (07:08)
[2017-05-04] MEDS ORDERED: TOBRAMYCIN SULFATE/DEXAMETH OPH OINTMENT 3.5 GM ONE (07:08)
[2017-05-04] MEDS ORDERED: CHONDR SU A NA/HYALUR INTRAOC KIT (SURGICARE) ONE (07:08)
[2017-05-04] MEDS ORDERED: EPINEPHRINE INJ/PF 1 MG/1 ML AMPULE ONE (07:08)
[2017-05-04] MEDS ORDERED: MIDAZOLAM 2 MG/2 ML INJ ONE ×2 (07:19)
== END 2017-05-04 08:43 | disposition home or self-care (01) ==
LOC: SC 06:35
PROVIDERS: ATTEND Ophthalmology
PROC: 08RJ3JZ Replacement of Right Lens with Synthetic Substitute, Percutaneous Approach (ICD-10-PCS; principal; 2017-05-04 07:30)
DX: H25.11 Age-related nuclear cataract, right eye (principal); E11.9 Type 2 diabetes mellitus without complications; E66.01 Morbid (severe) obesity due to excess calories; I10 Essential (primary) hypertension; E78.00 Pure hypercholesterolemia, unspecified; M19.90 Unspecified osteoarthritis, unspecified site; Z79.82 Long term (current) use of aspirin; Z79.84 Long term (current) use of oral hypoglycemic drugs; Z79.899 Other long term (current) drug therapy; Z87.891 Personal history of nicotine dependence; Z86.14 Personal history of Methicillin resistant Staphylococcus aureus infection; Z68.43 Body mass index [BMI] 50.0-59.9, adult
CPT/HCPCS: 82962; 66984; V2630; J2250; J3490 ×3; A9270; J0171; 142